=== PATIENT | female | born 1975 | race African-American/Black ===

== ENCOUNTER 2020-02-26 17:04 | Outpatient (CLI) | payer OTHER, SELFPAY ==
--- NOTE | ~2020-02-26 | MM_ITS ---
EXAMINATION: MM screening ashley BI w eulalio HISTORY: Screening TECHNIQUE: Craniocaudal and mediolateral oblique 3-D tomosynthesis images were obtained and synthetic 2-D images were generated. CAD analysis was submitted and interpreted. COMPARISON: Comparison to multiple prior studies sequentially, with oldest reviewed study dated 02/10. BREAST PARENCHYMAL COMPOSITION: The breasts are heterogeneously dense, which may obscure small masses . FINDINGS: There is no evidence of suspicious mass, calcification, or architectural distortion to sugg est malignancy in either breast. There has been no suspicious interval change. IMPRESSION: 1. No mammographic evidence of malignancy. 2. Recommend routine screening mammography in one year. BI-RADS Category 1: Negative Reviewed, dictated and finalized at location A.
== END 2020-02-26 17:05 | disposition home or self-care (01) ==
PROVIDERS: PCP Family Medicine; Visit Provider Obstetrics & Gynecology
DX: Z12.31 Encounter for screening mammogram for malignant neoplasm of breast (principal)
CPT/HCPCS: 77063; 77067

== ENCOUNTER 2021-03-02 07:32 | Outpatient (CLI) | payer OTHER, SELFPAY ==
--- NOTE | ~2021-03-02 | MM_ITS ---
EXAMINATION: MM screening ashley BI w eulalio HISTORY: Screening TECHNIQUE: Craniocaudal and mediolateral oblique 3-D tomosynthesis images were obtained and synthetic 2-D images were generated. CAD analysis was submitted and interpreted. COMPARISON: Comparison to multiple prior studies sequentially, with oldest reviewed study dated 02/10. BREAST PARENCHYMAL COMPOSITION: The breasts are heterogeneously dense, which may obscure small masses . FINDINGS: There is no evidence of suspicious mass, calcification, or architectural distortion to sugg est malignancy in either breast. There has been no suspicious interval change. IMPRESSION: 1. No mammographic evidence of malignancy. 2. Recommend routine screening mammography in one year. BI-RADS Category 1: Negative Reviewed, dictated and finalized at location A.
== END 2021-03-02 07:33 | disposition home or self-care (01) ==
LOC: ANHIMG 07:35
PROVIDERS: PCP Family Medicine; Visit Provider Obstetrics & Gynecology
DX: Z12.31 Encounter for screening mammogram for malignant neoplasm of breast (principal)
CPT/HCPCS: 77063; 77067

== ENCOUNTER 2022-04-03 13:17 | Outpatient (CLI) | payer OTHER, SELFPAY ==
--- NOTE | ~2022-04-03 | MM_ITS ---
EXAMINATION: MM screening ashley BI w eulalio HISTORY: Screening TECHNIQUE: Craniocaudal and mediolateral oblique 3-D tomosynthesis images were obtained and synthetic 2-D images were generated. CAD analysis was submitted and interpreted. COMPARISON: Comparison to multiple prior studies sequentially, with oldest reviewed study dated 10/2019. BREAST PARENCHYMAL COMPOSITION: The breasts are extremely dense, which lowers the sensitivity of mamm ography FINDINGS: There is no evidence of suspicious mass, calcification, or architectural distortion to sugg est malignancy in either breast. There has been no suspicious interval change. IMPRESSION: 1. No mammographic evidence of malignancy. 2. Recommend routine screening mammography in one year. BI-RADS Category 1: Negative Reviewed, dictated and finalized at location A. E COORDINATOR
== END 2022-04-03 13:18 | disposition home or self-care (01) ==
PROVIDERS: PCP Family Medicine; Visit Provider Obstetrics & Gynecology
DX: Z12.31 Encounter for screening mammogram for malignant neoplasm of breast (principal)
CPT/HCPCS: 77063; 77067

== ENCOUNTER 2022-09-09 07:22 | Emergency (ER) | payer OTHER, SELFPAY ==
--- NOTE | ~2022-09-09 | XR_ITS ---
XR chest 2V DATE: 09/09/2022 08:16 INDICATION: Chest pain, onset this morning. TECHNIQUE: PA and lateral views COMPARISON: 10/25/2005 CT pulmonary scan FINDINGS: Normal heart size. No hilar or mediastinal enlargement. No pulmonary infiltrate or consolid ation, pleural effusion or pulmonary vascular congestion or pneumothorax. Included skeletal structure s are unremarkable. IMPRESSION: Negative Reviewed, dictated and finalized at location L. IMPRESSION: Negative
--- NOTE | 2022-09-09 07:23 | ECG_ITS ---
Measurements Intervals [place] Rate: 77 P: 44 SC: 139 QRS: 46 QRSD: 92 T: 11 QT: 364 QTc: 414 Interpretive Statements SINUS RHYTHM WITH SINUS ARRHYTHMIA NO PREVIOUS ECG AVAILABLE FOR COMPARISON Electronically Signed On 09-09-2022 18:27:57 CDT by Melinda Shepard M.D.
[2022-09-09 07:38] VITALS: BP 129/82; PULSE 75; RESP 16; O2SAT 100
[2022-09-09 07:53] LABS: Basophils Percent Auto 0.5 % (0.2-1.2); Eosinophils Absolute Auto 0.1 K/mm3 (0-0.3); Eosinophils Percent Auto 0.8 % (0-4.4); Hematocrit 39.9 % (37.0-47.0); Hemoglobin 13.3 g/dL (12.0-15.0); Immature Granulocyte Absolute 0.01 K/mm3 (0.00-0.031); Immature Granulocyte Percent A 0.2 % (0-0.5); Lymphocytes Absolute Auto 1.46 K/mm3 (0.9-3.2); Lymphocytes Percent Auto 23.6 % (18.3-44.2); Mean Corpuscular HGB Conc 33.3 g/dl (32-36); Mean Corpuscular Hemoglobin 30.8 pg (26-34); Mean Corpuscular Volume 92.4 fl (80-100); Mean Platelet Volume 10.4 fl (7.4-10.4); Monocytes Absolute Auto 0.3 K/mm3 (0.1-0.6); Monocytes Percent Auto 5.5 % (2.6-8.5); Neutrophils Absolute Auto 4.3 K/mm3 (1.3-6.7); Neutrophils Percent Auto 69.4 % (45.5-73.1); Platelet Count Result 235 k/mm3 (150-375); Red Blood Count 4.32 M/mm3 (4.2-5.4); Red Cell Distribution Width 13.1 % (11.5-14.5); White Blood Count 6.2 K/mm3 (4.5-10.0)
[2022-09-09 08:04] LABS: Alanine Aminotransferase 23 U/L (6-35); Albumin Level 4.4 g/dL (3.5-5.1); Alkaline Phosphatase 63 U/L (38-126); Anion Gap 7 mmol/L (8-16); Aspartate Amino Transferase 21 U/L (14-36); Bilirubin,Total 0.6 mg/dL (0.2-1.3); Blood Urea Nitrogen 10 mg/dL (7-17); Calcium 8.5 mg/dL (8.4-10.2); Carbon Dioxide 26 mmol/L (22-30); Chloride 104 mmol/L (98-107); Estimated CRCL calculation 109 ml/min; Estimated Glomerular Filt Rate > 60; Glucose 104 mg/dL (65-110); Lipase 36 U/L (23-300); Potassium 3.6 mmol/L (3.4-5.0); Sodium 137 mmol/L (137-145)
[2022-09-09 08:10] LABS: INR 1.1; Prothrombin Time 13.3 Seconds (11.1-14.7)
[2022-09-09 08:11] LABS: Partial Thromboplastin Time 34.1 SECONDS (22.3-36.8)
[2022-09-09 08:17] LABS: Troponin I < 0.012 ng/mL (0.000-0.034)
[2022-09-09] MEDS: ASPIRIN 81 MG CHEWABLE TABLET 324 MG PO (09:16)
[2022-09-09] MEDS: KETOROLAC 30 MG/ML VIAL (*BKC) IV PUSH (09:17)
--- NOTE | 2022-09-09 10:38 | ED.CHESTPAIN ---
HPI - Chest Pain General Chief Complaint: Chest Pain Stated Complaint: chest pain starting this morning at 6 Time Seen by Provider: 09/09/22 07:36 History of Present Illness HPI narrative: Patient is a 47-year-old female who presents ER with chest pain. Reports this morning she started having chest pain that went from the left side and center of her chest up into her neck bilaterally. Nonexertional. Associated with some diarrhea. Endorses lower abdominal cramping. She reports she started having some chest pain as well on 09/04/2022. It occurred in the evening. It made her feel like she needed to take a deep breath. Aching in nature. No history of heart disease personally but her father had a multivessel CABG in his late 40s. She has been told she has high cholesterol and has not been controlled with diet or with medication and she is not currently on medication. Denies fevers or chills or sweats. Denies dyspepsia. No exertional shortness of breath. Though she is without nausea she does feel like she has an upset stomach. No known sick contacts. Patient did try going to the chiropractor yesterday for symptoms. Related Data Home Medications Medication Instructions Recorded Confirmed Lactobacillus 1 cap PO DAILY 05/25/19 06/07/19 acidophilus-Bifidobac.animalis 2.5 billion cell capsule (Daily Probiotic) ferrous fumarate 200 mg (65 mg 1 tablet PO DAILY 05/25/19 06/07/19 iron)-vit C 25 mg tablet,extend release red yeast rice 600 mg capsule 600 mg PO DAILY 05/25/19 06/07/19 Allergies Allergy/AdvReac Type Severity Reaction Status Date / Time No Known Drug Allergies Allergy Unknown Unknown Verified 09/09/22 07:42 Review of Systems Review of Systems: All systems reviewed & are unremarkable except as noted in HPI and below Constitutional: Constitutional: Denies chills, Denies fatigue and Denies fever(s) ENT: Denies nasal congestion and Denies sore throat Cardiovascular: Cardiovascular: Reports chest pain, Denies rapid heart rate and Reports radiating jaw, neck or arm pain Respiratory: Respiratory: Denies cough, Reports dyspnea and Denies wheezing Gastrointestinal: Gastrointestinal: Denies abdominal pain, Reports diarrhea, Denies nausea and Denies vomiting Comments: Lower abdominal cramping Musculoskeletal: Musculoskeletal: Denies back pain, Denies arthralgias and Denies joint swelling PMFSH Past Medical History Medical History (Updated 09/09/22 @ 12:04 by Nacho Jiang MD) Anemia Gestational diabetes Hyperlipidemia Leiomyoma Obesity Surgical History Surgical History H/O knee surgery H/O umbilical hernia repair Family History Family History (Updated 09/09/22 @ 10:51 by Nacho Jiang MD) Father Hx of CABG CAD, multiple vessel Other Diabetes mellitus Family history of elevated blood lipids Social History Social History Smoking status: Never smoker Alcohol intake: current Course Course Emergency Course: Patient resting comfortably. Only mild improvement of discomfort with Toradol so morphine given as well. Patient with 2 negative troponins. D-dimer negative as well. Hemoglobin and electrolytes unremarkable as is his chest x-ray. Patient with normal EKG. Patient given reassurance and recommend follow-up with PCP. Vital Signs Vital signs: Vital Signs Pulse Rate 75 09/09/22 07:38 Respiratory Rate 16 09/09/22 07:38 Blood Pressure 129/82 09/09/22 07:38 Pulse Oximetry 100 09/09/22 07:38 Oxygen Delivery Room Air 09/09/22 07:38 Pulse Rate 75 09/09/22 07:38 Respiratory Rate 16 09/09/22 07:38 Blood Pressure 129/82 09/09/22 07:38 Pulse Oximetry 100 09/09/22 07:38 Oxygen Delivery Room Air 09/09/22 07:38 MDM - Chest Pain Lab Data 09/09/22 07:47 09/09/22 07:47 Labs: Lab Results
[2022-09-09] MEDS: MORPHINE SULFATE (*CRX) 2 MG/ML INJ IV PUSH (10:51)
[2022-09-09 11:25] LABS: Troponin I < 0.012 ng/mL (0.000-0.034)
[2022-09-09 11:53] LABS: D Dimer < 0.27 ug/mL (<0.48)
[2022-09-09 12:15] VITALS: BP 116/100; PULSE 98; RESP 16; O2SAT 100
== END 2022-09-09 12:15 | disposition home or self-care (01) ==
PROVIDERS: Emergency Provider Emergency Medicine; PCP Family Medicine
DX: R07.89 Other chest pain (principal); E78.5 Hyperlipidemia, unspecified; E66.9 Obesity, unspecified; Z68.29 Body mass index [BMI] 29.0-29.9, adult; Z86.2 Personal history of diseases of the blood and blood-forming organs and certain disorders involving the immune mechanism
CPT/HCPCS: 36415; 71046; 80053; 83690; 84484; 85025; 85380; 85610; 85730; 93005; 96374; 96375; 99284; A9270; J1885; J2270

== ENCOUNTER 2023-04-15 07:21 | Outpatient (CLI) | payer OTHER, SELFPAY ==
--- NOTE | ~2023-04-15 | MM_ITS ---
EXAMINATION: MM screening ashley BI w eulalio HISTORY: Screening mammogram TECHNIQUE: Craniocaudal and mediolateral oblique 3-D tomosynthesis images were obtained and synthetic 2-D images were generated. CAD analysis was submitted and interpreted. COMPARISON: 04/03/2022, 03/02/2021, 02/26/2020 bilateral screening mammogram examinations BREAST PARENCHYMAL COMPOSITION: The breasts are heterogeneously dense, which may obscure small masses . FINDINGS: There is no evidence of suspicious mass, calcification, or architectural distortion to sugg est malignancy in either breast. There has been no suspicious interval change. IMPRESSION: 1. No mammographic evidence of malignancy. 2. Recommend routine screening mammography in one year. BI-RADS Category 1: Negative Reviewed, dictated and finalized at location A. B CONSULTANT
== END 2023-04-15 07:22 | disposition home or self-care (01) ==
LOC: ANHIMG 07:26
PROVIDERS: PCP Family Medicine Sports Medicine; Visit Provider Obstetrics & Gynecology
DX: Z12.31 Encounter for screening mammogram for malignant neoplasm of breast (principal)
CPT/HCPCS: 77063; 77067

== ENCOUNTER 2024-06-11 07:35 | Outpatient (CLI) | payer OTHER, SELFPAY ==
--- NOTE | ~2024-06-11 | MM_ITS ---
EXAMINATION: MM screening ashley BI w eulalio HISTORY: Screening TECHNIQUE: Craniocaudal and mediolateral oblique 3-D tomosynthesis images were obtained and synthetic 2-D images were generated. CAD analysis was submitted and interpreted. COMPARISON: Comparison to multiple prior studies sequentially, with oldest reviewed study dated 02/10. BREAST PARENCHYMAL COMPOSITION: Dense: The breasts are heterogeneously dense, which may obscure small masses FINDINGS: There is no evidence of suspicious mass, calcification, or architectural distortion to sugg est malignancy in either breast. There has been no suspicious interval change. IMPRESSION: 1. No mammographic evidence of malignancy. 2. Recommend routine screening mammography in one year. BI-RADS Category 1: Negative Reviewed, dictated and finalized at location A. HAMMER OPERATOR
--- OUTSIDE RECORDS SUMMARY | 2024-06-14 11:35 | XMS_ITS | Clinical Summary ---
Author Organization [facility] Address [address] [place] [address] Phone Care Team Providers Care Photo Technologist Name Role Phone Unavailable Primary Care Provider Unavailabl e Allergies No known active allergies Medications methylPREDNISol one (Medrol, René,) 4 mg DosepackIndicat ions:Overuse syndrome of right hand, initial encounter follow package directions 1 packet Active Additional Information Patient not taking.Reported on 05/18/2024 Active Problems Problem Noted Date Diagnosed Date Overuse syndrome of right hand 05/18/2024 Right carpal tunnel syndrome 05/18/2024 Familial hyperlipidemia 10/06/2022 History of gestational diabetes 10/06/2022 Encounters Date Type Department Care Team Description 06/11/2024 3:00 PM NATURAL HISTORY COLLECTIONS CURATOR Therapy [facility] OP Physical Therapy [address] [address] Right carpal tunnel syndrome 05/18/2024 7:45 AM NATURAL HISTORY COLLECTIONS CURATOR Office Visit [facility] Hand Surgery [address] [place] [address] Andres Haley MD Right carpal tunnel syndrome (Primary Dx); Overuse syndrome of right hand, initial encounter 05/02/2024 4:30 PM NATURAL HISTORY COLLECTIONS CURATOR Ancillary Procedure [facility] Imaging at [address] [phone] Overuse syndrome of right hand, initial encounter 05/02/2024 4:15 PM NATURAL HISTORY COLLECTIONS CURATOR Ancillary Procedure [facility] Imaging at [address] [phone] Overuse syndrome of right hand, initial encounter 04/30/2024 5:30 PM NATURAL HISTORY COLLECTIONS CURATOR Office Visit [facility] Convenient Care at [address] [phone] Chula Lima NP Overuse syndrome of right hand, initial encounter (Primary Dx) from Last 3 Months Immunizations Name Administration Dates Next Due Influenza, Quadrivalent, Spl it, Preservative Free, Intramuscular 04/11/2015 Tdap 04/11/2015 Surgical History Surgery Date Site/Laterality Comments HERNIA REPAIR LAPAROSCOPIC TOTAL HYSTERECTOMY 2019 for fibroids. still has ovaries KNEE SURGERY 05/23/1995 - 05/22/1996 Left meniscal repair Medical History Medical History Date Comments High cholesterol Gestational diabetes Family History Medical History Relation Name Comments Heart disease Father Dad CABG x 3 Hyperlipidemia Father Dad Diabetes Maternal Grandmother Grandmother Treadwel l Diabetes Other both sides of t he family Autoimmune disease Sister autoimmun e hepatitis Relation Name Status Comments Father Dad Maternal Grandmother Grandmother Danny Other Sister Social History Tobacco Use Types Packs/Day Years Used Date Smoking Tobacco: Never Smokeless Tobacco: Never PHQ-2 Answer Date Recorded PHQ-2 Total Score (If total score is 3 or more points, staff should administer the PHQ-9) 0 11/05/2022 Comments No Sex and Gender Information Value Date Recorded Sex Assigned at Not on file Legal Sex Female 8:23 PM NATURAL HISTORY COLLECTIONS CURATOR Gender Identity Not on file Sexual Orientation Not on file Obstetrics History Last Filed Vital Signs Vital Sign Reading Time Taken Comments Blood Pressure 128/80 04/30/2024 5:07 PM NATURAL HISTORY COLLECTIONS CURATOR Pulse 73 04/30/2024 5:07 PM NATURAL HISTORY COLLECTIONS CURATOR Temperature 36.9 ??C (98.4 ??F) 04/30/2024 5:07 PM CS T Respiratory Rate 16 04/30/2024 5:07 PM NATURAL HISTORY COLLECTIONS CURATOR Oxygen Saturation 99% 04/30/2024 5:07 PM NATURAL HISTORY COLLECTIONS CURATOR Inhaled Oxygen Concentration - - Weight 79.8 kg (176 lb) 04/30/2024 5:07 PM NATURAL HISTORY COLLECTIONS CURATOR Height 166.4 cm (5' 5.5 ) 04/30/2024 5:07 PM NATURAL HISTORY COLLECTIONS CURATOR Body Mass Index 28.84 04/30/2024 5:07 PM NATURAL HISTORY COLLECTIONS CURATOR Plan of Treatment Health Maintenance Due Date Last Done Comments Colon Cancer Screening-Colonoscopy 1977 Hepatitis C Screening 1977 Hepatitis B Screening 1995 Regular Well Visit/Exam 18-64 1995 Depression Screening 11/06/2023 11/05/2022, 11/05/2022, 10/06/2022 Covid-19 Vaccine (2 - 2023-2 5 season) 2024 06/09/2021 Influenza Vaccine (#1) 2024 04/11/2015 Breast Cancer Screening-Mammogram 04/15/2024 04/15/2023, 04/03/2022, 03/02/2021 DTaP/Tdap/Td Vaccine (2 - Td or Tdap) 04/11/2025 04/11/2015 Pneumococcal vaccine <65 Aged Out No longer eligible based on patient's age to complete this topic Procedures Procedure Name Priority Date/Time Associated Diagnosis Comments XR HAND RIGHT 3 OR MORE VIEWS Schedule ROB, Read ROB (Appt Today, Awaiting Results) 05/02/2024 4:06 PM NATURAL HISTORY COLLECTIONS CURATOR Overuse syndrome of right hand, initial encounter XR WRIST RIGHT 3 OR MORE VIEWS Schedule ROB, Read ROB (Appt Today, Awaiting Results) 05/02/2024 4:06 PM NATURAL HISTORY COLLECTIONS CURATOR Overuse syndrome of right hand, initial encounter MAMMOGRAPHY Routine 04/15/2023 4:14 PM NATURAL HISTORY COLLECTIONS CURATOR from Last 3 Months or Most Recently Relevant to Health Maintenance Results * XR Hand Right 3+ Vw (05/02/2024 4:06 PM NATURAL HISTORY COLLECTIONS CURATOR) Anatomical Region Laterality Modality Upper Extremities, Hand Right Digital Radiography 05/02/2024 8:43 PM NATURAL HISTORY COLLECTIONS CURATOR Narrative 05/02/2024 8:46 PM NATURAL HISTORY COLLECTIONS CURATOR EXAM DESCRIPTION: XR HAND RIGHT 3 OR MORE VIEWS; XR WRIST RIGHT 3 OR MORE VIEWS REASON FOR STUDY: pain ?? Pt complains of right hand and wrist pain x a couple of weeks. No known injury or prior surgery. ? FINDINGS: Three views right hand and four views right wrist submitted without comparison. There are no erosions. ??There are no fractures. ??Alignment is normal. ??There is mild basal thumb joint osteoarthritis. ??There is no dorsal wrist soft tissue swelling. IMPRESSION: No radiographic evidence of inflammatory arthritis. Mild right basal thumb joint osteoarthritis. THIS IS AN ELECTRONICALLY VERIFIED FINAL REPORT 05/02/2024 8:46 PM - Electronically signed by ??Ashutosh Ruiz M.D. D: ??05/02/2024 8:46 PM T: Report ID: [id number] Reading Location: ??[id number] Procedure Note Ashutosh Ruiz MD - 05/02/2024 EXAM DESCRIPTION: XR HAND RIGHT 3 OR MORE VIEWS; XR WRIST RIGHT 3 OR MORE VIEWS REASON FOR STUDY: pain Pt complains of right hand and wrist pain x a couple of weeks. No knowninjury or prior surgery. FINDINGS: Three views right hand and four views right wrist submittedwithout comparison. There are no erosions. There are no fractures. Alignment is normal.There is mild basal thumb joint osteoarthritis. There is no dorsal wrist soft tissue swelling. IMPRESSION: No radiographic evidence of inflammatory arthritis. Mild right basal thumb joint osteoarthritis. THIS IS AN ELECTRONICALLY VERIFIED FINAL REPORT 05/02/2024 8:46 PM - Electronically signed by Ashutosh Ruiz M.D. T: Report ID: [id number] Reading Location: [place] [address] Chula Lima SHIPPING SERVICES SALES REPRESENTATIVE IMG XR PROCEDURES Final Result * XR Wrist Right 3+ Vw (05/02/2024 4:06 PM NATURAL HISTORY COLLECTIONS CURATOR) Anatomical Region Laterality Modality Upper Extremities, Wrist Right Digital Radiography 05/02/2024 8:43 PM NATURAL HISTORY COLLECTIONS CURATOR Narrative 05/02/2024 8:46 PM NATURAL HISTORY COLLECTIONS CURATOR EXAM DESCRIPTION: XR HAND RIGHT 3 OR MORE VIEWS; XR WRIST RIGHT 3 OR MORE VIEWS REASON FOR STUDY: pain ?? Pt complains of right hand and wrist pain x a couple of weeks. No known injury or prior surgery. ? FINDINGS: Three views right hand and four views right wrist submitted without comparison. There are no erosions. ??There are no fractures. ??Alignment is normal. ??There is mild basal thumb joint osteoarthritis. ??There is no dorsal wrist soft tissue swelling. IMPRESSION: No radiographic evidence of inflammatory arthritis. Mild right basal thumb joint osteoarthritis. THIS IS AN ELECTRONICALLY VERIFIED FINAL REPORT 05/02/2024 8:46 PM - Electronically signed by ??Ashutosh Ruiz M.D. D: ??05/02/2024 8:46 PM T: Report ID: [id number] Reading Location: ??[id number] Procedure Note Ashutosh Ruiz MD - 05/02/2024 EXAM DESCRIPTION: XR HAND RIGHT 3 OR MORE VIEWS; XR WRIST RIGHT 3 OR MORE VIEWS REASON FOR STUDY: pain Pt complains of right hand and wrist pain x a couple of weeks. No knowninjury or prior surgery. FINDINGS: Three views right hand and four views right wrist submittedwithout comparison. There are no erosions. There are no fractures. Alignment is normal.There is mild basal thumb joint osteoarthritis. There is no dorsal wrist soft tissue swelling. IMPRESSION: No radiographic evidence of inflammatory arthritis. Mild right basal thumb joint osteoarthritis. THIS IS AN ELECTRONICALLY VERIFIED FINAL REPORT 05/02/2024 8:46 PM - Electronically signed by Ashutosh Ruiz M.D. T: Report ID: [id number] Reading Location: [place] [address] Chula Lima NP IMG XR PROCEDURES Final Result * MAMMOGRAPHY (04/15/2023 4:14 PM NATURAL HISTORY COLLECTIONS CURATOR) Historical Provider HEALTH MAINTENANCE Final Result from Last 3 Months or Most Recently Relevant to Health Maintenance Insurance [facility] [id number]
--- OUTSIDE RECORDS SUMMARY | 2024-06-14 11:35 | XMS_ITS | Continuity of Care Document ---
Author Organization [facility] Address [address] [place] [address] Phone Care Team Providers Care Datapower Developer Name Role Phone Unavailable Unavailable Unavailable Advance Directives Directive Yes / No Effective Date File Name No Information Encounters Encounter Description Practice Location Reason(s) For Visit Diagnoses Date Provider Providers Copied on Encounter [facility], [address], [place], [place], [id number], [place] tel:[phone] [facility] No Information No Information Referring Provider: ZOEY Simon, [address], [place], [address]. tel:[phone] Family History Family Member Type Diagnosis Age At Onset No Information Payers Payer name Insurance type Covered constitution party ID Authoriza tion(s) No Information Social History Type Description Quantity Date Captured Comments Sex Female Smoking Status No Information Chief Complaint And Reason For Visit No Information History Of Present Illness Encounter Date Complaint History Of Prese nt Illness No Information Instructions Date Instruction Additional Infor mation No Information Assessments Type Assessment Date No Information
--- OUTSIDE RECORDS SUMMARY | 2024-06-14 11:35 | XMS_ITS | Referral Summary ---
Author Organization [facility] Address [address] [place] [address] Phone Care Team Providers Care Insurance Collector Name Role Phone Unavailable Primary Care Provider Unavailabl e Encounters Date Type Department Care Team Description 06/11/2024 3:00 PM RADIO TELEVISION TECHNICAL DIRECTOR Therapy [facility] OP Physical Therapy [address] [place] [address] Right carpal tunnel syndrome 05/18/2024 7:45 AM RADIO TELEVISION TECHNICAL DIRECTOR Office Visit [facility] Hand Surgery [facility] [place] [phone] Andres Haley MD Right carpal tunnel syndrome (Primary Dx); Overuse syndrome of right hand, initial encounter 05/02/2024 4:30 PM RADIO TELEVISION TECHNICAL DIRECTOR Ancillary Procedure [facility] Imaging at [address] [phone] Overuse syndrome of right hand, initial encounter 05/02/2024 4:15 PM RADIO TELEVISION TECHNICAL DIRECTOR Ancillary Procedure [facility] Imaging at [address] [phone] Overuse syndrome of right hand, initial encounter 04/30/2024 5:30 PM RADIO TELEVISION TECHNICAL DIRECTOR Office Visit [facility] Convenient Care at [address] [phone] Chula Lima NP Overuse syndrome of right hand, initial encounter (Primary Dx) from Last 3 Months Allergies No known active allergies Medications methylPREDNISol one (Medrol, René,) 4 mg DosepackIndicat ions:Overuse syndrome of right hand, initial encounter follow package directions 1 packet Active Additional Information Patient not taking.Reported on 05/18/2024 Active Problems Problem Noted Date Diagnosed Date Overuse syndrome of right hand 05/18/2024 Right carpal tunnel syndrome 05/18/2024 Familial hyperlipidemia 10/06/2022 History of gestational diabetes 10/06/2022 Immunizations Name Administration Dates Next Due Influenza, Quadrivalent, Spl it, Preservative Free, Intramuscular 04/11/2015 Tdap 04/11/2015 Social History Tobacco Use Types Packs/Day Years Used Date Smoking Tobacco: Never Smokeless Tobacco: Never PHQ-2 Answer Date Recorded PHQ-2 Total Score (If total score is 3 or more points, staff should administer the PHQ-9) 0 11/05/2022 Comments No Sex and Gender Information Value Date Recorded Sex Assigned at Not on file Legal Sex Female 8:23 PM RADIO TELEVISION TECHNICAL DIRECTOR Gender Identity Not on file Sexual Orientation Not on file Last Filed Vital Signs Vital Sign Reading Time Taken Comments Blood Pressure 128/80 04/30/2024 5:07 PM RADIO TELEVISION TECHNICAL DIRECTOR Pulse 73 04/30/2024 5:07 PM RADIO TELEVISION TECHNICAL DIRECTOR Temperature 36.9 ??C (98.4 ??F) 04/30/2024 5:07 PM CS T Respiratory Rate 16 04/30/2024 5:07 PM RADIO TELEVISION TECHNICAL DIRECTOR Oxygen Saturation 99% 04/30/2024 5:07 PM RADIO TELEVISION TECHNICAL DIRECTOR Inhaled Oxygen Concentration - - Weight 79.8 kg (176 lb) 04/30/2024 5:07 PM RADIO TELEVISION TECHNICAL DIRECTOR Height 166.4 cm (5' 5.5 ) 04/30/2024 5:07 PM RADIO TELEVISION TECHNICAL DIRECTOR Body Mass Index 28.84 04/30/2024 5:07 PM RADIO TELEVISION TECHNICAL DIRECTOR Plan of Treatment Not on file Procedures Procedure Name Priority Date/Time Associated Diagnosis Comments XR HAND RIGHT 3 OR MORE VIEWS Schedule ROB, Read ROB (Appt Today, Awaiting Results) 05/02/2024 4:06 PM RADIO TELEVISION TECHNICAL DIRECTOR Overuse syndrome of right hand, initial encounter XR WRIST RIGHT 3 OR MORE VIEWS Schedule ROB, Read ROB (Appt Today, Awaiting Results) 05/02/2024 4:06 PM RADIO TELEVISION TECHNICAL DIRECTOR Overuse syndrome of right hand, initial encounter MAMMOGRAPHY Routine 04/15/2023 4:14 PM RADIO TELEVISION TECHNICAL DIRECTOR from Last 3 Months or Most Recently Relevant to Health Maintenance Results * XR Hand Right 3+ Vw (05/02/2024 4:06 PM RADIO TELEVISION TECHNICAL DIRECTOR) Anatomical Region Laterality Modality Upper Extremities, Hand Right Digital Radiography 05/02/2024 8:43 PM RADIO TELEVISION TECHNICAL DIRECTOR Narrative 05/02/2024 8:46 PM RADIO TELEVISION TECHNICAL DIRECTOR EXAM DESCRIPTION: XR HAND RIGHT 3 OR [...] D: ??05/02/2024 8:46 PM T: Report ID: [id number] Reading Location: ??[id number] Procedure Note Ashutosh Ruiz MD - 05/02/2024 [...] by Ashutosh Ruiz M.D. T: Report ID: [id number] Reading Location: [place] [address] [place] Chula SusanneRay Lima LEAD NURSE IMG XR PROCEDURES Final Result * XR Wrist Right 3+ Vw (05/02/2024 4:06 PM RADIO TELEVISION TECHNICAL DIRECTOR) Anatomical Region Laterality Modality Upper Extremities, Wrist Right Digital Radiography 05/02/2024 8:43 PM RADIO TELEVISION TECHNICAL DIRECTOR Narrative 05/02/2024 8:46 PM RADIO TELEVISION TECHNICAL DIRECTOR EXAM DESCRIPTION: XR HAND RIGHT 3 OR [...] D: ??05/02/2024 8:46 PM T: Report ID: [id number] Reading Location: ??[id number] Procedure Note Ashutosh Ruiz MD - 05/02/2024 [...] by Ashutosh Ruiz M.D. T: Report ID: [id number] Reading Location: [id number] Chula Lima LEAD NURSE IMG XR PROCEDURES Final Result * HM MAMMOGRAPHY (04/15/2023 4:14 PM RADIO TELEVISION TECHNICAL DIRECTOR) Historical Provider HEALTH MAINTENANCE Final Result from Last 3 Months or Most Recently Relevant to Health Maintenance Insurance [facility] [id number]
== END 2024-06-11 07:36 | disposition home or self-care (01) ==
LOC: ANHIMG 07:39
PROVIDERS: Visit Provider Obstetrics & Gynecology
DX: Z12.31 Encounter for screening mammogram for malignant neoplasm of breast (principal)
CPT/HCPCS: 77063; 77067